=== PATIENT | male | born 1955 | race Caucasian/White ===

== ENCOUNTER 2018-01-21 09:10 | Outpatient (CLI) | payer OTHER ==
[2018-01-21 09:40] LABS: Bilirubin Negative (Negative); Blood, Urine Negative (Negative); Clarity CLEAR (Clear); Glucose, Urine (Dipstick) Negative (Negative); Leukocyte Negative (Negative); Nitrite Negative (Negative); Protein, Urine (Dipstick) Negative (Neg-Trace); Specific Gravity, Urine 1.025 (1.002-1.036); Urobilinogen 0.2 mg/dL (0.2-1.0)
[2018-01-21 09:46] LABS: Bacteria/HPF None Seen HPF (None Seen); Hyaline Casts/LPF 0-3 HYALINE CAST LPF (0-3 Hyaline); RBC/HPF 0-3 HPF (0-3); Squamous Epithelial None Seen HPF (0-3); WBC/HPF None Seen HPF (0-3)
[2018-01-21 09:54] LABS: Anion Gap 12 mmol/L (10-20); BUN (Urea Nitrogen) 17 mg/dL (8.4-25.7); Calc. Creatinine Clearance 0 mL/min (70-130); Calcium 9.6 mg/dL (7.8-10.44); Carbon Dioxide 26 mmol/L (23-31); Chloride 106 mmol/L (98-107); Estimated GFR-MDRD 76; Glucose 119 mg/dL (80-115); Potassium 4.1 mmol/L (3.5-5.1); Sodium 140 mmol/L (136-145); Uric Acid 5.8 mg/dL (3.5-7.2)
[2018-01-21] MEDS ORDERED: Iopamidol 370 76% 100 ML VIAL ONE (11:49)
--- NOTE | 2018-01-21 13:01 | CT ---
CT OF THE ABDOMEN AND PELVIS WITH AND WITHOUT IV CONTRAST UTILIZING UROGRAM PROTOCOL: INDICATION: History of bladder cancer with bladder tumor removal. Evaluate for metastatic disease. FINDINGS: Lung bases are clear. There is some area of focal fatty sparing in the area of the gallbladder fossa. The pancreas, adrenal glands, and kidneys are normal-appearing. The spleen appears within normal flores its. There are tiny nonobstructing calculi within both kidneys. There are 2 separate 2 mm stones within t he left mid kidney. There is a 2 mm nonobstructing calculus within the superior pole of the right ki dney. No ureteral stone is evident. No definite solid renal mass is noted. No gross focal filling defect is seen within the renal collecting system on the delayed phase images. There is nonspecific circumferential thickening of the bladder wall without evidence of intraluminal mass. The prostate is mildly enlarged measuring 4.6 cm. There are bilateral fat-containing inguinal hernias. There are scattered diverticula without evidence of active diverticulitis. There is a nor mal appendix in the right lower quadrant. No free fluid or enlarged lymph nodes are demonstrated. No definite acute osseous abnormality is evident. IMPRESSION: 1. Circumferential wall thickening involving the bladder may reflect sequelae of therapy. No defini te intraluminal mass is evident to suggest residual bladder disease. Recommend correlation with cyst oscopy, however. 2. No evidence to suggest regional metastatic disease within the abdomen or pelvis. 3. Bilateral nephrolithiasis. 4. Colonic diverticulosis. 5. Prostate enlargement. POS: YURI
== END 2018-01-21 09:11 | disposition home or self-care (01) ==
LOC: CT 09:10
PROVIDERS: ATTEND Urology
DX: Z12.5 Encounter for screening for malignant neoplasm of prostate (principal); C67.9 Malignant neoplasm of bladder, unspecified; M10.9 Gout, unspecified; Z87.442 Personal history of urinary calculi; N20.0 Calculus of kidney; N40.0 Benign prostatic hyperplasia without lower urinary tract symptoms; K57.30 Diverticulosis of large intestine without perforation or abscess without bleeding
CPT/HCPCS: 36415; 74178; 80048; 81001; 84550; 87086; G0103

== ENCOUNTER 2021-10-10 13:38 | Outpatient (CLI) | payer MEDICARE | END 2021-10-10 13:39 | disposition home or self-care (01) | LOC: BICRAD 13:38 | PROVIDERS: ATTEND Urology | DX: N20.0 Calculus of kidney (principal); Z12.5 Encounter for screening for malignant neoplasm of prostate; C67.9 Malignant neoplasm of bladder, unspecified | CPT/HCPCS: 74018; 80048; 81001; 87086; G0103; 36415 ==

== ENCOUNTER 2022-08-19 08:43 | Outpatient (CLI) | payer MEDICARE ==
[2022-08-19] MEDS ORDERED: Iopamidol-370 76% 500 ML 1 ML ONE (08:46)
== END 2022-08-19 08:44 | disposition home or self-care (01) ==
LOC: BICCT 08:43
PROVIDERS: ATTEND Urology
DX: C67.9 Malignant neoplasm of bladder, unspecified (principal); N20.0 Calculus of kidney; K57.30 Diverticulosis of large intestine without perforation or abscess without bleeding
CPT/HCPCS: 74178; Q9967

== ENCOUNTER 2023-01-26 10:53 | Outpatient (CLI) | payer MEDICARE ==
[2023-01-26 12:35] LABS: Bilirubin Neg (Negative); Blood, Urine Negative (Negative); Clarity Clear (Clear); Glucose, Urine (Dipstick) Normal (Negative); Ketone, Urine Negative (Negative); Leukocyte Negative (Negative); Nitrite Negative (Negative); Protein, Urine (Dipstick) Negative (Neg-Trace); Urobilinogen Normal mg/dL (Less than 2)
[2023-01-26 13:03] LABS: Hemoglobin 13.6 g/dL (13.5-17.5); Mean Corpuscular HGB CONC 32.7 g/dL (32.0-36.0); Mean Corpuscular Hemoglobin 30.7 pg (27.0-33.0); Mean Corpuscular Volume 93.9 fl (81.2-95.1); Mean Platelet Volume 11.5 fl (7.4-10.4); Platelet Count 227 10x3/uL (150-450); RBC Distribution Width 12.8 % (11.5-14.5); Red Blood Cell (RBC) Count 4.43 10x6/uL (4.32-5.72)
[2023-01-26 13:11] LABS: Bacteria/HPF Rare-Few HPF (None Seen); RBC/HPF 0-3 HPF (0-3); Squamous Epithelial 0-3 HPF (0-3); WBC/HPF 0-3 HPF (0-3)
[2023-01-26 13:17] LABS: INR-International Normal Ratio 0.9; PTT 26.9 sec (22.0-33.0); Prothrombin Time 10.2 sec (9.5-12.1)
[2023-01-26 13:43] LABS: Anion Gap 16 mmol/L (10-20); BUN (Urea Nitrogen) 16 mg/dL (8.4-25.7); Calc. Creatinine Clearance 0 mL/min (70-130); Calcium 9.4 mg/dL (7.8-10.44); Carbon Dioxide 24 mmol/L (23-31); Chloride 107 mmol/L (98-107); Estimated GFR 94; Glucose 70 mg/dL (80-115); Sodium 143 mmol/L (136-145)
== END 2023-01-26 10:54 | disposition home or self-care (01) ==
LOC: LABBT 10:53
PROVIDERS: ATTEND Urology
DX: Z01.818 Encounter for other preprocedural examination (principal); Z12.5 Encounter for screening for malignant neoplasm of prostate; C67.9 Malignant neoplasm of bladder, unspecified; E66.8 Other obesity; N40.1 Benign prostatic hyperplasia with lower urinary tract symptoms; M10.9 Gout, unspecified; T50.A95 Adverse effect of other bacterial vaccines; N20.0 Calculus of kidney; R33.8 Other retention of urine; N21.0 Calculus in bladder
CPT/HCPCS: 80048; 81001; 85027; 85610; 85730; 87086; 93005; 93010

== ENCOUNTER 2023-02-04 05:53 | Day surgery (SDC) | payer MEDICARE ==
[2023-02-02 10:05] VITALS: BMI 29.5
[2023-02-04] MEDS ORDERED: fentaNYL PF 100 MCG/2 ML SYRINGE ONE (07:00)
[2023-02-04] MEDS ORDERED: Levofloxacin 500 mg/D5W 100 ml Premix Bag ONE (07:19)
[2023-02-04] MEDS ORDERED: ePHEDrine 50 MG/ML VIAL ONE (07:24)
[2023-02-04] MEDS ORDERED: PROPOFOL 200 MG/20 ML VIAL ONE (07:24)
[2023-02-04] MEDS ORDERED: Ondansetron PF 4 MG/2 ML Vial ONE (07:24)
[2023-02-04] MEDS ORDERED: Dexamethasone 20 MG/5 ML VIAL ONE (07:24)
[2023-02-04] MEDS ORDERED: Lidocaine 1% PF 5 ML VIAL ONE (07:24)
[2023-02-04] MEDS ORDERED: Oxybutynin 5 MG TAB ONE (08:43)
[2023-02-04] MEDS ORDERED: Phenazopyridine HCl 100 MG TAB ONE (08:43)
== END 2023-02-04 10:11 | disposition home or self-care (01) ==
LOC: SDC 05:53
PROVIDERS: ATTEND Urology
PROC: 0TCB8ZZ Extirpation of Matter from Bladder, Via Natural or Artificial Opening Endoscopic (ICD-10-PCS; principal; 2023-02-04)
PROC: 0T5B8ZZ Destruction of Bladder, Via Natural or Artificial Opening Endoscopic (ICD-10-PCS; 2023-02-04)
PROC: 0T7D8ZZ Dilation of Urethra, Via Natural or Artificial Opening Endoscopic (ICD-10-PCS; 2023-02-04)
DX: N32.89 Other specified disorders of bladder (principal); N21.0 Calculus in bladder; N40.1 Benign prostatic hyperplasia with lower urinary tract symptoms; R33.8 Other retention of urine; R39.14 Feeling of incomplete bladder emptying; N36.8 Other specified disorders of urethra; N35.912 Unspecified bulbous urethral stricture, male; I10 Essential (primary) hypertension; M10.9 Gout, unspecified; Z85.51 Personal history of malignant neoplasm of bladder; Z87.442 Personal history of urinary calculi; Z79.899 Other long term (current) drug therapy; Z88.2 Allergy status to sulfonamides
CPT/HCPCS: 82365; 88300; 88305; J1956

== ENCOUNTER 2024-09-27 12:29 | Outpatient (CLI) | payer MEDICARE ==
[~2024-09-27 12:29] MED LIST: Iopamidol 370 76% 100 ML VIAL ONE
== END 2024-09-27 12:30 | disposition home or self-care (01) ==
LOC: BICCT 12:29
PROVIDERS: ATTEND Urology
DX: C67.9 Malignant neoplasm of bladder, unspecified (principal); N20.0 Calculus of kidney; N40.1 Benign prostatic hyperplasia with lower urinary tract symptoms; N13.8 Other obstructive and reflux uropathy
CPT/HCPCS: 74178; Q9967

== ENCOUNTER 2024-11-28 10:29 | Outpatient (CLI) | payer MEDICARE ==
[2024-11-28 12:02] LABS: #Basophils 0.03 10x3/uL (0.0-0.2); %Basophils 0.4 % (0.0-1.0); %Eosinophils 0.6 % (0.0-10.0); %Lymphocytes 33.8 % (21.0-51.0); %Neutrophils 58.8 % (42.0-75.0); Hematocrit 44.5 % (42.0-52.0); Hemoglobin 15.1 g/dL (14.0-18.0); Mean Corpuscular HGB CONC 33.9 g/dL (32.0-36.0); Mean Corpuscular Hemoglobin 31.7 pg (27.0-31.0); Mean Corpuscular Volume 93.5 fL (78.0-98.0); Mean Platelet Volume 11.2 fL (7.4-10.4); Platelet Count 171 10x3/uL (130-400); RBC Distribution Width 13.2 % (11.5-14.5); Red Blood Cell (RBC) Count 4.76 mill/uL (4.70-6.10)
[2024-11-28 12:20] LABS: Anion Gap 14 mmol/L (10-20); BUN (Urea Nitrogen) 16 mg/dL (8.4-25.7); Calc. Creatinine Clearance 0 mL/min (70-130); Calcium 9.9 mg/dL (7.8-10.44); Carbon Dioxide 28 mmol/L (23-31); Chloride 105 mmol/L (98-107); Estimated GFR 93; Glucose 101 mg/dL (80-115); Sodium 143 mmol/L (136-145)
[2024-11-28 12:23] LABS: Prothrombin Time 12.7 sec (12.0-14.7)
[2024-11-28 15:13] LABS: Bacteria/HPF None Seen HPF (None Seen); Bilirubin Negative (Negative); Blood, Urine Negative (Negative); Clarity Clear (Clear); Glucose, Urine (Dipstick) Normal (Negative); Ketone, Urine Negative (Negative); Leukocyte Negative Leu/uL (Negative); Nitrite Negative (Negative); Protein, Urine (Dipstick) Negative (Neg-Trace); RBC/HPF 0-3 HPF (0-3); Specific Gravity, Urine 1.012 (1.002-1.036); Squamous Epithelial None Seen HPF (0-3); Urobilinogen Normal mg/dL (Less than 2); WBC/HPF 0-3 HPF (0-3); pH, Urine 6.5 (5.0-9.0)
== END 2024-11-28 10:30 | disposition home or self-care (01) ==
LOC: LABBT 10:29
PROVIDERS: ATTEND Urology
DX: Z01.818 Encounter for other preprocedural examination (principal); Z12.5 Encounter for screening for malignant neoplasm of prostate; C67.9 Malignant neoplasm of bladder, unspecified; N40.1 Benign prostatic hyperplasia with lower urinary tract symptoms; M10.9 Gout, unspecified; N20.0 Calculus of kidney; N21.0 Calculus in bladder; R33.9 Retention of urine, unspecified; T50.A95 Adverse effect of other bacterial vaccines
CPT/HCPCS: 80048; 81001; 85025; 85610; 85730; 86850; 86900; 86901; 87086; 93005; 93010

== ENCOUNTER 2024-12-07 08:01 | Day surgery (SDC) | payer MEDICARE ==
[2024-11-28 11:09] VITALS: BMI 31.5
[2024-12-07] MEDS ORDERED: LevoFLOXacin D5W 500 mg (100 mL) BAG ONE (08:22)
[2024-12-07] MEDS ORDERED: PROPOFOL 20 ML ONE (08:52)
[2024-12-07] MEDS ORDERED: Lidocaine 2% PF 5 ML VIAL ONE (08:52)
[2024-12-07] MEDS ORDERED: Rocuronium Bromide 10 MG/ML (10ML VIAL) ONE (08:52)
[2024-12-07] MEDS ORDERED: fentaNYL PF 100 MCG/2 ML SYRINGE ONE (12:56)
[2024-12-07] MEDS ORDERED: Ondansetron PF 4 MG/2 ML Vial ONE (13:19)
[2024-12-07] MEDS ORDERED: Dexamethasone 20 MG/5 ML VIAL ONE (13:25)
[2024-12-07] MEDS ORDERED: SUGAMMADEX SODIUM 200 MG/2 ML VIAL ONE (13:33)
[2024-12-07] MEDS ORDERED: ePHEDrine Sulfate 50 MG/10 ML VIAL ONE (13:36)
[2024-12-07] MEDS ORDERED: fentaNYL 50 mcg/mL 1 mL Vial ONE (15:13)
== END 2024-12-07 16:36 | disposition home or self-care (01) ==
LOC: SDC 08:01
PROVIDERS: ATTEND Urology
PROC: 0T5B8ZZ Destruction of Bladder, Via Natural or Artificial Opening Endoscopic (ICD-10-PCS; principal; 2024-12-07)
DX: C67.2 Malignant neoplasm of lateral wall of bladder (principal); M10.9 Gout, unspecified; N22 Calculus of urinary tract in diseases classified elsewhere; Z85.828 Personal history of other malignant neoplasm of skin; Z98.890 Other specified postprocedural states; Z88.2 Allergy status to sulfonamides; Z88.1 Allergy status to other antibiotic agents
CPT/HCPCS: 52235; 74018; 86850; 86900; 86901; A4333; J1100; J1956; J2405; J2704; J3010; J9280; 88305

== ENCOUNTER 2025-10-19 13:08 | Outpatient (CLI) | payer MEDICARE ==
[2025-10-19 13:33] LABS: Estimated GFR - POC 80.0
[2025-10-19] MEDS ORDERED: Iopamidol 370 76% 100 ML VIAL ONE (14:16)
== END 2025-10-19 13:09 | disposition home or self-care (01) ==
LOC: CT 13:08
PROVIDERS: ATTEND Urology
DX: C67.9 Malignant neoplasm of bladder, unspecified (principal); N20.0 Calculus of kidney
CPT/HCPCS: 36415; 74178; 82565; Q9967